=== PATIENT | male | born 1990 | race Caucasian/White ===

== ENCOUNTER 2017-06-10 19:36 | Emergency (ER) | payer OTHER ==
[~2017-06-10] VITALS: Ht 167.6 cm; Wt 90.0 kg
[2017-06-10 19:52] VITALS: BP 120/77
== END 2017-06-10 20:41 | disposition home or self-care (01) ==
LOC: ED 20:14
DX: F10.120 Alcohol abuse with intoxication, uncomplicated (principal)
CPT/HCPCS: 99283